=== PATIENT | male | born 1960 | race Caucasian/White ===

== ENCOUNTER → 2016-08-13 | Outpatient (CLI) | payer OTHER ==
[~2016-08-13] MED LIST: ASPI81TA21 PO; ISOS30TA35 PO; [UNRECOGNIZED DRUG - CODE] PO
[2016-08-13 13:43] LABS: URINE APPEARANCE CLEAR (CLEAR); URINE BILIRUBIN NEG (NEG); URINE COLOR YELLOW; URINE EPITHELIAL CELL AUTO 0-5 /lpf (0-5); URINE NITRITE NEG (NEG); URINE SPECIFIC GRAVITY 1.017 (1.000-1.030); UROBILINOGEN NEG (NEG)
[2016-08-13 13:46] LABS: MANUAL MICROSCOPIC REQUIRED? NO; REVIEW REQ? NO
== END | disposition home or self-care (01) ==
LOC: C.LABPVFM 14:28
PROVIDERS: ATTEND Family Medicine
DX: R10.9 Unspecified abdominal pain (principal)

== ENCOUNTER → 2017-03-28 | Outpatient (CLI) | payer OTHER ==
--- NOTE | 2017-03-28 11:38 | DIAGNOSTIC IMAGING REPORT ---
RIGHT FOOT MIN 3 VIEWS ROUTINE CLINICAL HISTORY: 56 years-old Male presenting with right ankle and foot pain, possible injury while mowing grass a few weeks ago, still experiencing pain. TECHNIQUE: Frontal, oblique, and lateral views of the right foot were obtained. COMPARISON: None. FINDINGS: No acute fracture or malalignment. Prominent bone spur at the inferior calcaneus. No significant degenerative change is evident. Regional soft tissues within normal limits. IMPRESSION: No acute osseous injury of the right foot. Prominent enthesophyte at the origin of the plantar fascia, correlate with point tenderness. Electronically signed by: Jass Judd M.D. 03/28/2017 11:36 AM Dictated Date/Time: 03/28/2017 11:35 AM
--- NOTE | 2017-03-28 11:38 | DIAGNOSTIC IMAGING REPORT ---
RIGHT ANKLE 3 VIEWS CLINICAL HISTORY: Right ankle pain. FINDINGS: 3 views of the right ankle are obtained. No prior studies are available for comparison at the time of dictation. The skeletal structures are well mineralized. No fracture is seen. The ankle mortise is intact. There is a small joint effusion. Mild soft tissue swelling is present around ankle. There is a large plantar calcaneal enthesophyte. IMPRESSION: Joint effusion and soft tissue swelling. No right ankle fracture is seen. Electronically signed by: Jassi Kumar M.D. 03/28/2017 11:37 AM Dictated Date/Time: 03/28/2017 11:36 AM
== END | disposition home or self-care (01) ==
LOC: C.RADPV 11:13
PROVIDERS: ATTEND Family Medicine
DX: S93.409A Sprain of unspecified ligament of unspecified ankle, initial encounter (principal); S93.609A Unspecified sprain of unspecified foot, initial encounter; X58.XXXA Exposure to other specified factors, initial encounter; M25.471 Effusion, right ankle; M79.9 Soft tissue disorder, unspecified; M77.9 Enthesopathy, unspecified

== ENCOUNTER → 2017-04-17 | Outpatient (CLI) | payer OTHER ==
[2017-04-17 12:59] LABS: ALT/SGPT 62 U/L (12-78); BLOOD UREA NITROGEN 27 mg/dl (7-18); CALCIUM 8.9 mg/dl (8.5-10.1); CARBON DIOXIDE 23 mmol/L (21-32); CHLORIDE 105 mmol/L (98-107); CHOLESTEROL 199 mg/dl (0-200); GLUCOSE 110 mg/dl (70-99); POTASSIUM 4.1 mmol/L (3.5-5.1); SODIUM 137 mmol/L (136-145); TRIGLYCERIDES 217 mg/dl (0-150); URIC ACID 8.7 mg/dl (2.6-7.2); VERY LOW DENSITY LIPOPROT CALC 43 mg/dl
[2017-04-17 13:10] LABS: ALKALINE PHOSPHATASE 56 U/L (45-117); AST/SGOT 36 U/L (15-37); CHOLESTEROL/HDL RATIO 4.2; HDL CHOLESTEROL 47 mg/dl; LDL CHOLESTEROL CALCULATED 109 mg/dl
== END | disposition home or self-care (01) ==
LOC: C.LABPVFM 09:49
PROVIDERS: ATTEND Family Medicine
DX: M25.579 Pain in unspecified ankle and joints of unspecified foot (principal); E55.9 Vitamin D deficiency, unspecified; R53.83 Other fatigue; F32.9 Major depressive disorder, single episode, unspecified; I10 Essential (primary) hypertension; I20.1 Angina pectoris with documented spasm; M54.5 Low back pain

== ENCOUNTER → 2017-12-14 | Outpatient (CLI) | payer OTHER ==
[~2017-12-14] MED LIST changes: +ASPI-319 PO; -ASPI81TA21 PO
[2017-12-14 13:29] LABS: ALBUMIN 3.7 gm/dl (3.4-5.0); ALT/SGPT 81 U/L (12-78); AST/SGOT 38 U/L (15-37); BLOOD UREA NITROGEN 22 mg/dl (7-18); CALCIUM 8.5 mg/dl (8.5-10.1); CARBON DIOXIDE 28 mmol/L (21-32); CHOLESTEROL 189 mg/dl (0-200); GLUCOSE 113 mg/dl (70-99); SODIUM 136 mmol/L (136-145)
[2017-12-14 13:40] LABS: ALKALINE PHOSPHATASE 62 U/L (45-117); LDL CHOLESTEROL CALCULATED 111 mg/dl; TOTAL PROTEIN 7.5 gm/dl (6.4-8.2)
== END | disposition home or self-care (01) ==
LOC: C.LABPVFM 08:17
PROVIDERS: ATTEND Family Medicine
DX: I10 Essential (primary) hypertension (principal); E03.9 Hypothyroidism, unspecified; E55.9 Vitamin D deficiency, unspecified